=== PATIENT | female | born 1985 | race Caucasian/White ===

== ENCOUNTER 2020-06-06 17:48 | Emergency (ER) | payer MEDICARE, MEDICAID, SELFPAY ==
--- NOTE | ~2020-06-06 | CT_ITS ---
EXAMINATION: CT knee LT wo con DATE: 06/06/2020 18:54 INDICATION: Left knee pain. TECHNIQUE: Computed tomography (CT) of the left knee was performed without intravenous contrast. Auto mated exposure control and iterative reconstruction technique were employed. The dose-length product was 599.45 mGy-cm. COMPARISON: Left knee radiographs 11/14/2017 FINDINGS: Bone alignment is normal. No fracture. There is moderate tricompartmental osteoarthritis. T here is a small left knee joint effusion. IMPRESSION: 1. Moderate left knee osteoarthritis. 2. Small knee joint effusion. Reviewed, dictated and finalized at location A. [employer]
[2020-06-06 17:55] VITALS: BP 155/94; PULSE 95; RESP 22; TEMP 37.6; O2SAT 100
[2020-06-06] MEDS: ONDANSETRON HCL ODT 4 MG TABLET PO (18:32)
[2020-06-06] MEDS: HYDROmorphone HCL INJ (*CRX) 2 MG/ML VIAL 1.5 MG IM (18:32)
[2020-06-06 18:44] VITALS: BP 150/90; PULSE 90; RESP 18
[2020-06-06 19:35] VITALS: BP 150/88; PULSE 92; RESP 18
--- NOTE | 2020-06-06 20:01 | ED.LOWEXIN ---
HPI - Extremity Injury (Lower) General Source: patient and family Mode of arrival: ambulatory Limitations: no limitations History of Present Illness HPI Narrative: Patient says she twisted her leg and now has left knee pain since this twist which happened last pm. Pain has been moderately severe, ongoing and not relieved at home. complaint: knee injury Onset (ago): day(s) Place: home Severity: moderate Exacerbating factors: nothing Other symptoms: none Related Data Home Medications Medication Instructions Recorded Confirmed atorvastatin 40 mg PO DAILY 06/06/20 06/06/20 gabapentin 900 mg PO TID 06/06/20 06/06/20 hydrochlorothiazide 25 mg PO DAILY 06/06/20 06/06/20 potassium chloride 10 meq PO DAILY 06/06/20 06/06/20 Allergies Allergy/AdvReac Type Severity Reaction Status Date / Time Sulfa (Sulfonamide Allergy Severe HIVES Verified 11/07/18 01:54 Antibiotics) sumatriptan Allergy Intermediate WORSENS Verified 11/07/18 01:53 MIGRAINE AND NAUSEA doxycycline Allergy Mild Verified 11/07/18 01:53 latex Allergy Mild Verified 11/07/18 01:53 Penicillins Allergy Unknown Verified 11/07/18 01:53 sulfamethoxazole Allergy Unknown Verified 11/07/18 01:53 tramadol Allergy Unknown Unknown Verified 11/07/18 01:53 trimethoprim Allergy Unknown Verified 11/07/18 01:53 hydrocodone AdvReac Unknown ITCHING Verified 11/07/18 01:53 ketorolac AdvReac Unknown NAUSEA AND Verified 11/07/18 01:53 EMESIS Contrast Media Allergy Mild Nausea and Uncoded 11/07/18 01:53 Vomiting Review of Systems Constitutional: Constitutional: Reports no additional constitutional complaints Eyes: Eyes: Reports no additional eye complaints ENT: Reports system reviewed and no additional complaints, except as documented Cardiovascular: Cardiovascular: Reports no additional cardiovascular complaints Respiratory: Respiratory: Reports no additional respiratory complaints Gastrointestinal: Gastrointestinal: Reports no additional gastrointestinal complaints Genitourinary: Genitourinary: Reports no additional female genitourinary complaints Musculoskeletal: Musculoskeletal: Reports no additional musculoskeletal complaints Integumentary/Breasts: Skin/Breast: Reports system reviewed and no additional complaints, except as docu Neurologic: Reports system reviewed and no additional complaints, except as documented Psychiatric: Psychiatric: Reports no additional psychiatric complaints Endocrine: Endocrine: Reports no additional endocrine complaints Hematologic/Lymphatic: Hematologic/Lymphatic: Reports no additional hematologic/lymphatic complaints Allergic/Immunologic: Allergic/Immunologic: Reports no additional allergic/immunologic complaints [facility] Past Medical History Medical History (Updated 06/07/20 @ 01:54 by Miguel Angel Khan MD) Fibromyalgia HTN (hypertension) Hyperlipemia Irritable bowel Family History Family History Father Bipolar 1 disorder Hypertension Hyperlipemia Mother Hypertension Hyperlipemia Social History Social History Smoking packs per day: 0.5 Smoking cigarettes per day: 10.0 Smoking status: Current every day smoker Tobacco type: cigarettes Alcohol intake: never Exam Const: General: no acute distress Orientation/consciousness: patient oriented x3 HENMT: Head: normal to inspection Ears: external ears normal Face and sinus: normal facial exam Mouth: Yes Normal oral and palatal mucosa present and Yes moist mucous membranes Eyes: Conjunctivae: conjunctivae normal Neck: Neck: normal visual inspection and no lymphadenopathy Chest: Chest palpation & inspection: normal inspection of the chest Resp: Effort & Inspection: normal respiratory effort Auscultation: clear to auscultation bilaterally Cardio: Rate: regular rate Rhythm: regular rhythm GI: GI Palp: Yes Soft to palpation (
[2020-06-06 20:05] VITALS: BP 150/88; PULSE 90; RESP 18; TEMP 36.4; O2SAT 98
== END 2020-06-06 20:06 | disposition home or self-care (01) ==
PROVIDERS: Emergency Provider Emergency Medicine; PCP Family Medicine
DX: M25.562 Pain in left knee (principal)
CPT/HCPCS: 73700; 96372; 99283; 99284; A9270; J1170

== ENCOUNTER 2020-09-25 20:06 | Emergency (ER) | payer MEDICARE, MEDICAID, SELFPAY ==
--- NOTE | ~2020-09-25 | XR_ITS ---
XR knee LT min 4V DATE: 09/25/2020 20:51 INDICATION: Patient a pop a few hours ago. Generalized left knee pain TECHNIQUE: 4 views COMPARISON: None FINDINGS: Prominent tricompartment osteoarthritis No fracture or dislocation or joint effusion. No periosteal reaction or bone destruction, radiopaque intra-articular loose body or chondrocalcinosis. IMPRESSION: Tricompartment osteoarthritis Reviewed, dictated and finalized at location A.
[2020-09-25 20:11] VITALS: BP 153/94; PULSE 101; RESP 14; TEMP 37.2; O2SAT 97
--- NOTE | 2020-09-25 20:48 | ED.LOWEXIN ---
HPI - Extremity Injury (Lower) General Chief Complaint: Extremity Injury, Lower Stated Complaint: TRIED TO KILL MY KNEE Time Seen by Provider: 09/25/20 20:30 Source: patient and RN notes reviewed Mode of arrival: wheelchair Limitations: no limitations History of Present Illness HPI Narrative: This is a 35 year old morbidly obese female who presents for evaluation of left knee pain. She states she tried to stop her wheelchair from rolling down the hill by putting her foot down. She states she felt a pop, and she is having left lateral knee pain. She state she took tylenol for her pain. She states she is in wheelchair due to excessive weight. Related Data Home Medications Medication Instructions Recorded Confirmed atorvastatin 40 mg PO DAILY 06/06/20 06/06/20 gabapentin 900 mg PO TID 06/06/20 06/06/20 hydrochlorothiazide 25 mg PO DAILY 06/06/20 06/06/20 potassium chloride 10 meq PO DAILY 06/06/20 06/06/20 Allergies Allergy/AdvReac Type Severity Reaction Status Date / Time Sulfa (Sulfonamide Allergy Severe HIVES Verified 11/07/18 01:54 Antibiotics) sumatriptan Allergy Intermediate WORSENS Verified 11/07/18 01:53 MIGRAINE AND NAUSEA doxycycline Allergy Mild Verified 11/07/18 01:53 latex Allergy Mild Verified 11/07/18 01:53 Penicillins Allergy Unknown Verified 11/07/18 01:53 sulfamethoxazole Allergy Unknown Verified 11/07/18 01:53 tramadol Allergy Unknown Unknown Verified 11/07/18 01:53 trimethoprim Allergy Unknown Verified 11/07/18 01:53 hydrocodone AdvReac Unknown ITCHING Verified 11/07/18 01:53 ketorolac AdvReac Unknown NAUSEA AND Verified 11/07/18 01:53 EMESIS Contrast Media Allergy Mild Nausea and Uncoded 11/07/18 01:53 Vomiting Review of Systems Review of Systems: All systems reviewed & are unremarkable except as noted in HPI and below PMFSH Past Medical History Medical History Fibromyalgia HTN (hypertension) Hyperlipemia Irritable bowel Family History Family History Father Bipolar 1 disorder Hypertension Hyperlipemia Mother Hypertension Hyperlipemia Social History Social History Smoking packs per day: 0.5 Smoking cigarettes per day: 10.0 Smoking status: Current every day smoker Tobacco type: cigarettes Alcohol intake: never Gender identity (if verbalized by the patient): Female Exam Const: General: alert Nutritional Appearance: obese Orientation/consciousness: patient oriented x3 Resp: Effort & Inspection: normal respiratory effort Skin: General skin exam: normal color Rashes: no rashes Neuro: General: patient oriented x3, moves all extremities and CN's II-XI intact bilaterally Extrem: Other: left lateral knee no bruising, no noticeable swelling or deformity, TTP left lateral knee Psych: Mental Status: mental status grossly normal Affect: normal affect Course Reevaluation(s) Reevaluation #1: I have discussed with patient that xray did not show fracture Date: 09/25/20 Time: 21:39 Vital Signs Vital signs: Vital Signs Temperature 99.0 F 09/25/20 20:11 Pulse Rate 101 H 09/25/20 20:11 Respiratory Rate 14 09/25/20 20:11 Blood Pressure 153/94 H 09/25/20 20:11 Pulse Oximetry 97 09/25/20 20:11 Temperature 99.0 F 09/25/20 20:11 Pulse Rate 94 09/25/20 22:00 Respiratory Rate 20 09/25/20 22:00 Blood Pressure 150/94 H 09/25/20 22:00 Pulse Oximetry 96 09/25/20 22:00 MDM - Extremity Injury (Lower) Imaging Data Radiologist's impression: ITS Impressions Knee X-Ray 09/25/20 21:12 IMPRESSION: Tricompartment osteoarthritis Discharge Plan Discharge Clinical Impression: Left knee sprain Patient Disposition: Home, Self-Care Condition: Stable Instructions: Antibiotic Form, Knee Sprain (ED), Knee Pain (ED) Additiona
[2020-09-25] MEDS: oxyCODONE/ACETAMINOPHEN (*CRX) 5-325 MG TABLET 1 TABLET PO (21:01)
[2020-09-25 22:00] VITALS: BP 150/94; PULSE 94; RESP 20; O2SAT 96
== END 2020-09-25 22:00 | disposition home or self-care (01) ==
PROVIDERS: Emergency Provider General Practice; PCP Family Medicine
DX: S83.92XA Sprain of unspecified site of left knee, initial encounter (principal); E66.01 Morbid (severe) obesity due to excess calories; Z68.45 Body mass index [BMI] 70 or greater, adult; Z99.3 Dependence on wheelchair; M79.7 Fibromyalgia; I10 Essential (primary) hypertension; E78.5 Hyperlipidemia, unspecified; K58.9 Irritable bowel syndrome, unspecified; F17.210 Nicotine dependence, cigarettes, uncomplicated; M17.12 Unilateral primary osteoarthritis, left knee; X50.9XXA Other and unspecified overexertion or strenuous movements or postures, initial encounter
CPT/HCPCS: 73564; 99283; A9270

== ENCOUNTER 2021-01-05 19:14 | Emergency (ER) | payer MEDICARE, OTHER, SELFPAY ==
--- NOTE | ~2021-01-05 | XR_ITS ---
EXAMINATION: XR wrist RT min 3V INDICATION: Right wrist pain TECHNIQUE: Four views of the right wrist are obtained. COMPARISON: 11/08/2011 FINDINGS: Three radiopaque foreign bodies are identified in the soft tissues of the wrist projecting medial to the carpal bones. Each measures approximately 4 mm. Bone alignment is normal. There is no f racture. The joint spaces are normal. IMPRESSION: 1. Three radiopaque foreign bodies in the soft tissues of the medial wrist. Reviewed, dictated and finalized at location A.
--- NOTE | ~2021-01-05 | XR_ITS ---
EXAMINATION: XR elbow RT min 3V INDICATION: Right elbow pain TECHNIQUE: Four views of the right elbow were obtained. COMPARISON: 11/08/2011 FINDINGS: There is no fracture, dislocation, or subluxation. Bone alignment is normal. The joint spac es are normal. There are at least three radiopaque foreign bodies projecting in the posterior subcuta neous tissues. One measures 4 mm and projects posterior to the distal humerus. The second measures 4 mm and projects near the ulna and the third is a 1 mm linear foreign body projecting between the two larger foreign bodies. IMPRESSION: 1. No acute osseous abnormality. 2. Radiopaque foreign bodies projecting in the posterior subcutaneous tissues of the right arm as candido cribed above. Reviewed, dictated and finalized at location A. IMPRESSION: 1. No acute osseous abnormality. 2. Radiopaque foreign bodies projecting in the posterior subcutaneous tissues o f the right arm as described above.
[2021-01-05 19:15] VITALS: BP 161/93; PULSE 72; RESP 20; TEMP 36.2; O2SAT 97
[2021-01-05] MEDS: IBUPROFEN 400 MG TABLET 800 MG PO (20:17)
--- NOTE | 2021-01-05 20:59 | ED.EXTPRO ---
HPI - Extremity Problem General Chief complaint: Extremity Problem,Nontraumatic Stated complaint: wrist pain Time Seen by Provider: 01/05/21 19:17 Source: patient and RN notes reviewed Mode of arrival: ambulatory Limitations: no limitations History of Present Illness MD Complaint: extremity pain and other (FB of right wrist and right elbow.) Onset (ago): year(s) (3) Pain Consistency: constant Location: right and upper extremity Severity scale (1-10): 3 Quality: aching Radiation: none Relieving factors: medication Exacerbating factors: nothing Associated symptoms: denies other symptoms Related Data Home Medications Medication Instructions Recorded Confirmed atorvastatin 40 mg PO DAILY 06/06/20 01/05/21 gabapentin 1,200 mg PO TID 06/06/20 01/05/21 hydrochlorothiazide 25 mg PO DAILY 06/06/20 01/05/21 potassium chloride 40 meq PO DAILY 06/06/20 01/05/21 albuterol sulfate 2 puff INHALATION Q4-6H PRN 01/05/21 01/05/21 dicyclomine 20 mg PO TID 01/05/21 01/05/21 hydroxyzine pamoate 25 mg PO TID PRN 01/05/21 01/05/21 methimazole 2.5 mg PO DAILY 01/05/21 01/05/21 oxycodone-acetaminophen 1 tablet PO Q8-12H PRN 01/05/21 01/05/21 Allergies Allergy/AdvReac Type Severity Reaction Status Date / Time Sulfa (Sulfonamide Allergy Severe HIVES Verified 11/07/18 01:54 Antibiotics) sumatriptan Allergy Intermediate WORSENS Verified 11/07/18 01:53 MIGRAINE AND NAUSEA doxycycline Allergy Mild Itching Verified 01/05/21 19:52 latex Allergy Mild Itching Verified 01/05/21 19:52 Penicillins Allergy Unknown Itching Verified 01/05/21 19:52 sulfamethoxazole Allergy Unknown Itching Verified 01/05/21 19:52 tramadol Allergy Unknown Unknown Verified 11/07/18 01:53 trimethoprim Allergy Unknown Itching Verified 01/05/21 19:52 bee venom protein (honey bee) Allergy Anaphylaxis Verified 01/05/21 19:52 tomato Allergy Itching Verified 01/05/21 19:52 hydrocodone AdvReac Unknown ITCHING Verified 11/07/18 01:53 ketorolac AdvReac Unknown NAUSEA AND Verified 11/07/18 01:53 EMESIS Contrast Media Allergy Mild Nausea and Uncoded 11/07/18 01:53 Vomiting Review of Systems Review of Systems: All systems reviewed & are unremarkable except as noted in HPI and below Musculoskeletal: Musculoskeletal: Reports arthralgias PMFSH Past Medical History Medical History Fibromyalgia HTN (hypertension) Hyperlipemia Irritable bowel Family History Family History Father Bipolar 1 disorder Hypertension Hyperlipemia Mother Hypertension Hyperlipemia Social History Social History Smoking packs per day: 0.5 Smoking cigarettes per day: 10.0 Smoking status: Current every day smoker Tobacco type: cigarettes Alcohol intake: never Gender identity (if verbalized by the patient): Female Exam Const: General: no acute distress and alert Nutritional Appearance: obese Orientation/consciousness: patient oriented x3 HENMT: Head: normal to inspection Ears: external ears normal and TM's normal bilaterally General nose exam: Normal external nose present and Normal nares present Mouth: Yes moist mucous membranes Eyes: Conjunctivae: conjunctivae normal Pupils: Equal, round and reactive pupils present EOM: EOMs intact bilaterally Neck: Neck: normal visual inspection and no lymphadenopathy Chest: Chest palpation & inspection: normal inspection of the chest Resp: Effort & Inspection: normal respiratory effort Auscultation: clear to auscultation bilaterally Cardio: Rate: regular rate Rhythm: regular rhythm GI: GI Palp: Yes Soft to palpation and No Tenderness to palpation present (GI) Auscultation: normal bowel sounds : General: Yes bladder normal to palpation and Yes no CVA tenderness Back/Spine/Pelvis: Back: no CVA tenderness Skin: General skin exam: normal color
[2021-01-05 21:14] VITALS: BP 152/97; PULSE 79; RESP 20; TEMP 36.2; O2SAT 98
== END 2021-01-05 21:18 | disposition home or self-care (01) ==
PROVIDERS: Emergency Provider Emergency Medicine; PCP Family Medicine
DX: S60.85 Superficial foreign body of wrist (principal); S50.35 Superficial foreign body of elbow
CPT/HCPCS: 73080; 73110; 99283; 99284; A9270

== ENCOUNTER 2023-01-05 19:49 | Emergency (ER) | payer MEDICARE, MEDICAID, SELFPAY ==
--- NOTE | ~2023-01-05 | CT_ITS ---
EXAMINATION: CT lumbar spine wo con DATE: 01/05/2023 21:05 INDICATION: Low back pain TECHNIQUE: Computed tomography (CT) of the lumbar spine was performed without intravenous contrast. T he dose-length product (DLP) was 1406.78 mGy-cm. Iterative reconstruction was used. COMPARISON: 10/31/2017 FINDINGS: There are 2 mm of chronic retrolisthesis of L5 on S1. The vertebral body heights are mainta ined. There is mild loss of intervertebral disc space height at L5-S1. There is no fracture. There is multilevel mild facet joint osteoarthritis. IMPRESSION: 1. Mild lumbar spondylosis without acute findings or significant interval change. Reviewed, dictated and finalized at location F. IMPRESSION: 1. Mild lumbar spondylosis without acute findings or significant interval silver sonu
[2023-01-05 19:54] VITALS: BP 164/116; PULSE 111; RESP 16; TEMP 36.8; O2SAT 94
--- NOTE | 2023-01-05 20:00 | ED.FALL ---
HPI - Fall General Chief Complaint: Fall Stated Complaint: Back Injury Time Seen by Provider: 01/05/23 19:59 Source: patient Mode of arrival: ambulatory Limitations: no limitations History of Present Illness HPI Narrative: this is a 7-year-old female with morbid obesity, dyslipidemia, fibromyalgia, hyperthyroidism fell backwards earlier today while she was walking at home prior to coming to the ER. The patient presents with -- low back pain without any radiation. No paresthesias. -- Numbness of both her legs below her knees. The patient is able to voluntarily move her toes. complaint: fall Onset (ago): hour(s) ( couple of hours ago) Fall from: standing Fall witnessed: no Place fall occurred: home Loss of consciousness: none Prolonged down time: no Symptoms prior to fall: none Context: tripped/slipped Location of injury: back Severity: moderate Quality: aching Related Data Home Medications Medication Instructions Recorded Confirmed atorvastatin 40 mg tablet 40 mg PO DAILY 06/06/20 01/05/23 gabapentin 600 mg tablet 1,200 mg PO TID 06/06/20 01/05/23 hydrochlorothiazide 25 mg tablet 25 mg PO DAILY 06/06/20 01/05/23 potassium chloride 10 mEq 40 meq PO DAILY 06/06/20 01/05/23 tablet,extended release albuterol sulfate 90 mcg/actuation 2 puff inhalation Q4-6H PRN 01/05/21 01/05/23 aerosol inhaler Shortness Of Breath dicyclomine 20 mg tablet 20 mg PO TID 01/05/21 01/05/23 hydroxyzine pamoate 25 mg capsule 25 mg PO TID PRN Anxiety 01/05/21 01/05/23 methimazole 5 mg tablet 2.5 mg PO DAILY 01/05/21 01/05/23 oxycodone-acetaminophen 10 mg-325 1 tablet PO Q8-12H PRN Pain, 01/05/21 01/05/23 mg tablet Moderate Allergies Allergy/AdvReac Type Severity Reaction Status Date / Time Sulfa (Sulfonamide Allergy Severe HIVES Verified 01/05/23 19:51 Antibiotics) sumatriptan Allergy Intermediate WORSENS Verified 01/05/23 19:51 MIGRAINE AND NAUSEA doxycycline Allergy Mild Itching Verified 01/05/23 19:51 latex Allergy Mild Itching Verified 01/05/23 19:51 Penicillins Allergy Unknown Itching Verified 01/05/23 19:51 sulfamethoxazole Allergy Unknown Itching Verified 01/05/23 19:51 tramadol Allergy Unknown Unknown Verified 01/05/23 19:51 trimethoprim Allergy Unknown Itching Verified 01/05/23 19:51 bee venom protein (honey bee) Allergy Anaphylaxis Verified 01/05/23 19:51 tomato Allergy Itching Verified 01/05/23 19:51 hydrocodone AdvReac Unknown ITCHING Verified 01/05/23 19:51 ketorolac AdvReac Unknown NAUSEA AND Verified 01/05/23 19:51 EMESIS Contrast Media Allergy Mild Nausea and Uncoded 01/05/23 19:51 Vomiting Review of Systems Review of Systems: All systems reviewed & are unremarkable except as noted in HPI and below Constitutional: Constitutional: Reports as per HPI and Reports no additional constitutional complaints Eyes: Eyes: Reports as per HPI and Reports no additional eye complaints ENT: Reports system reviewed and no additional complaints, except as documented and Reports as per HPI Cardiovascular: Cardiovascular: Reports as per HPI and Reports no additional cardiovascular complaints Respiratory: Respiratory: Reports as per HPI and Reports no additional respiratory complaints Gastrointestinal: Gastrointestinal: Reports as per HPI and Reports no additional gastrointestinal complaints Genitourinary: Genitourinary: Reports no additional female genitourinary complaints and Reports as per HPI Musculoskeletal: Musculoskeletal: Reports no additional musculoskeletal complaints, Reports as per HPI and Reports back pain Comments: low back pain Integumentary/Breasts: Skin/Breast: Reports system reviewed and no additional complaints, except as docu and Reports as per HPI Neurologic: Reports system reviewed and no additional complaints, except as documented and Reports as per HPI Psychiatric: Comments: no sensation below her knees. Patient is able to move legs and wiggle her toes. Endoc
[2023-01-05 20:41] LABS: Pregnancy On Board Control Positive; Urine Pregnancy Test Negative
[2023-01-05] MEDS: ONDANSETRON HCL ODT 4 MG TABLET PO (22:01)
[2023-01-05] MEDS: HYDROmorphone HCL INJ (*CRX) 2 MG/ML VIAL 0.5 MG IM (22:01)
== END 2023-01-05 22:21 | disposition home or self-care (01) ==
PROVIDERS: Emergency Provider Internal Medicine Critical Care Medicine; PCP Family Medicine
DX: M54.50 Low back pain, unspecified (principal); E78.5 Hyperlipidemia, unspecified; I10 Essential (primary) hypertension; F17.210 Nicotine dependence, cigarettes, uncomplicated; Z79.899 Other long term (current) drug therapy; Z79.891 Long term (current) use of opiate analgesic; W01.0XXA Fall on same level from slipping, tripping and stumbling without subsequent striking against object, initial encounter; Y92.009 Unspecified place in unspecified non-institutional (private) residence as the place of occurrence of the external cause
CPT/HCPCS: 72131; 81025; 96372; 99284; A9270; J1170

== ENCOUNTER 2023-03-08 17:49 | Emergency (ER) | payer MEDICARE, MEDICAID, SELFPAY ==
--- NOTE | ~2023-03-08 | XR_ITS ---
EXAMINATION: XR chest 2V Exam Date/Time: 03/08/2023 18:25 RESIDENT HALL DIRECTOR HISTORY: chest pain Comparison: 11/27/2018. RESULT: Lines, tubes, and devices: None. Lungs and pleura: Mild diffuse reticular opacities with cuffing. Subsegmental hazy opacity in the le ft lower lung. Cardiomediastinal silhouette: Stable. Other: No acute osseous or upper abdominal finding. IMPRESSION: Mild interstitial edema. Subsegmental left lower lung airspace disease may represent infection or ate lectasis. Reviewed, dictated and finalized at location K. DENT HALL DIRECTOR IMPRESSION: Mild interstitial edema. Subsegmental left lower lung airspace disease may repr esent infection or atelectasis.
--- NOTE | 2023-03-08 18:00 | ECG_ITS ---
Measurements Intervals [place] Rate: 103 P: AL: 0 QRS: 60 QRSD: 97 T: 53 QT: 362 QTc: 475 Interpretive Statements SINUS TACHYCARDIA BORDERLINE T WAVE ABNORMALITY- ANTERIOR LEADS BORDERLINE ECG COMPARED TO ECG 08/02/2018 13:25:43 HEART RATE HAS DECREASED Electronically Signed On 03-09-2023 6:13:48 DIRECTOR AND PROFESSOR by Saad Wang D.O.
[2023-03-08 18:01] VITALS: BP 145/94; PULSE 107; RESP 20; TEMP 36.2; O2SAT 99
[2023-03-08 18:26] LABS: Basophils Percent Auto 0.4 % (0.2-1.2); Eosinophils Absolute Auto 0.4 K/mm3 (0-0.3); Eosinophils Percent Auto 3.1 % (0-4.4); Hematocrit 43.5 % (37.0-47.0); Hemoglobin 13.9 g/dL (12.0-15.0); Immature Granulocyte Absolute 0.06 K/mm3 (0.00-0.031); Immature Granulocyte Percent A 0.5 % (0-0.5); Lymphocytes Absolute Auto 2.38 K/mm3 (0.9-3.2); Mean Corpuscular Hemoglobin 27.9 pg (26-34); Mean Corpuscular Volume 87.3 fl (80-100); Mean Platelet Volume 11.1 fl (7.4-10.4); Monocytes Absolute Auto 0.4 K/mm3 (0.1-0.6); Monocytes Percent Auto 3.9 % (2.6-8.5); Neutrophils Absolute Auto 8.1 K/mm3 (1.3-6.7); Neutrophils Percent Auto 71.1 % (45.5-73.1); Platelet Count Result 344 k/mm3 (150-375); Red Blood Count 4.98 M/mm3 (4.2-5.4); Red Cell Distribution Width 14.1 % (11.5-14.5); White Blood Count 11.4 K/mm3 (4.5-10.0)
[2023-03-08 18:39] LABS: Alanine Aminotransferase 14 U/L (6-35); Albumin Level 4.2 g/dL (3.5-5.1); Alkaline Phosphatase 84 U/L (38-126); Anion Gap 9 mmol/L (8-16); Aspartate Amino Transferase 17 U/L (14-36); Bilirubin,Total 0.5 mg/dL (0.2-1.3); Blood Urea Nitrogen 7 mg/dL (7-17); Calcium 9.5 mg/dL (8.4-10.2); Carbon Dioxide 22 mmol/L (22-30); Chloride 101 mmol/L (98-107); Estimated CRCL calculation 195 ml/min; Estimated Glomerular Filt Rate > 60; Glucose 450 mg/dL (65-110); Lipase 49 U/L (23-300); Sodium 132 mmol/L (137-145)
[2023-03-08 18:42] LABS: Partial Thromboplastin Time 23.7 SECONDS (22.3-36.8); Prothrombin Time 13.2 Seconds (11.1-14.7)
[2023-03-08 18:49] LABS: Troponin I < 0.012 ng/mL (0.000-0.034)
[2023-03-08 20:00] VITALS: PULSE 101
[2023-03-08 20:01] VITALS: O2SAT 97
[2023-03-08 20:02] VITALS: BP 145/109; PULSE 102; RESP 22; TEMP 36.6; O2SAT 96
[2023-03-08] MEDS: NITROGLYCERIN SL 0.4 MG TABLET SUBLINGUAL (20:07)
--- NOTE | 2023-03-08 20:07 | PC.NURSE ---
Reports pain is 8/10 at this time. First nitro given.
--- NOTE | 2023-03-08 20:14 | ED.GENADULT ---
HPI - General Adult General Chief complaint: Chest Pain Stated complaint: chest pain/diff breathing/nausea Time Seen by Provider: 03/08/23 19:50 History of Present Illness HPI narrative: Patient 37-year-old female who presents emerged from with chief complaint of chest pain. Patient reports she has history of cardiac disease but does not have any stents placed she reports she has had MIs followed by cardiology in [place] patient states she was on a trip driving to the area and left her nitroglycerin at home she reports started having midsternal chest pain that she describes as pressure and also sharp. Related Data Home Medications Medication Instructions Recorded Confirmed atorvastatin 40 mg tablet 40 mg PO DAILY 06/06/20 01/05/23 gabapentin 600 mg tablet 1,200 mg PO TID 06/06/20 01/05/23 hydrochlorothiazide 25 mg tablet 25 mg PO DAILY 06/06/20 01/05/23 potassium chloride 10 mEq 40 meq PO DAILY 06/06/20 01/05/23 tablet,extended release albuterol sulfate 90 mcg/actuation 2 puff inhalation Q4-6H PRN 01/05/21 01/05/23 aerosol inhaler Shortness Of Breath dicyclomine 20 mg tablet 20 mg PO TID 01/05/21 01/05/23 hydroxyzine pamoate 25 mg capsule 25 mg PO TID PRN Anxiety 01/05/21 01/05/23 methimazole 5 mg tablet 2.5 mg PO DAILY 01/05/21 01/05/23 oxycodone-acetaminophen 10 mg-325 1 tablet PO Q8-12H PRN Pain, 01/05/21 01/05/23 mg tablet Moderate Allergies Allergy/AdvReac Type Severity Reaction Status Date / Time Sulfa (Sulfonamide Allergy Severe HIVES Verified 01/05/23 19:51 Antibiotics) sumatriptan Allergy Intermediate WORSENS Verified 01/05/23 19:51 MIGRAINE AND NAUSEA doxycycline Allergy Mild Itching Verified 01/05/23 19:51 latex Allergy Mild Itching Verified 01/05/23 19:51 Penicillins Allergy Unknown Itching Verified 01/05/23 19:51 sulfamethoxazole Allergy Unknown Itching Verified 01/05/23 19:51 tramadol Allergy Unknown Unknown Verified 01/05/23 19:51 trimethoprim Allergy Unknown Itching Verified 01/05/23 19:51 bee venom protein (honey bee) Allergy Anaphylaxis Verified 01/05/23 19:51 tomato Allergy Itching Verified 01/05/23 19:51 hydrocodone AdvReac Unknown ITCHING Verified 01/05/23 19:51 ketorolac AdvReac Unknown NAUSEA AND Verified 01/05/23 19:51 EMESIS Contrast Media Allergy Mild Nausea and Uncoded 01/05/23 19:51 Vomiting Review of Systems Review of Systems: A 10 system review of systems was completed on the patient and is negative except for what is stated in the HPI. Nursing and ancillary documentation was reviewed. PMFSH Past Medical History Medical History Fibromyalgia HTN (hypertension) Hyperlipemia Irritable bowel Family History Family History Father Bipolar 1 disorder Hypertension Hyperlipemia Mother Hypertension Hyperlipemia Social History Social History Smoking packs per day: 0.5 Smoking cigarettes per day: 10.0 Smoking status: Current every day smoker Tobacco type: cigarettes Alcohol intake: never Gender identity (if verbalized by the patient): Female Exam Narrative: GENERAL: Well-appearing, obese, and in no acute distress. HEAD: Normocephalic, atraumatic. EYES: PERRLA and EOMI. ENT: Nares clear, no rhinorrhea or epistaxis. Mucous membranes moist. NECK: Supple. CHEST: Clear to auscultation. No respiratory distress. HEART: Regular rate and rhythm. No murmur heard. Normal peripheral pulses. ABDOMEN: Soft, nontender, nondistended, normal active bowel sounds. EXTREMITIES: Normal range of motion. No edema. SKIN: Warm, dry, no rash. NEURO: No focal deficits. Alert and oriented x3. PSYCH: Normal mood and affect. Course Vital Signs Vital signs: Vital Signs Temperature 36.2 C L 03/08/23 18:01 Pulse Rate 107 H 03/08/23 18:01 Respiratory R
--- NOTE | 2023-03-08 20:24 | PC.NURSE ---
Pain still 11/18. 2nd nitro given.
--- NOTE | 2023-03-08 20:41 | PC.NURSE ---
Pain remains 11/18. Third nitro given. 116/99
[2023-03-08] MEDS: MORPHINE SULFATE (*CRX) 4 MG/ML INJ IV PUSH (21:14)
[2023-03-08 21:19] LABS: Troponin I < 0.012 ng/mL (0.000-0.034)
[2023-03-08 21:27] VITALS: BP 116/84; PULSE 108; RESP 15; O2SAT 95
[2023-03-08] MEDS: ONDANSETRON INJ 4 MG/2 ML VIAL IV PUSH (21:32)
== END 2023-03-08 22:16 | disposition home or self-care (01) ==
PROVIDERS: Emergency Medicine; Emergency Provider Emergency Medicine; PCP Family Medicine
DX: R07.89 Other chest pain (principal); I10 Essential (primary) hypertension; E78.5 Hyperlipidemia, unspecified; M79.7 Fibromyalgia
CPT/HCPCS: 36415; 71046; 80053; 83690; 84484; 85025; 85610; 85730; 93005; 96374; 96375; 99284; A9270; J2270; J2405

== ENCOUNTER 2023-11-09 09:45 | Outpatient (RCR) | payer MEDICARE, MEDICAID, SELFPAY ==
--- NOTE | 2023-10-12 09:59 | OPREHPOC ---
Outpatient Therapy Plan of Care This is a Multidisciplinary Plan of Care that may contain components documented by all disciplines (PT, OT, and ST.) PT Problem 1 PT Problem #1 Knowledge Deficit PT Goal 1 Goal 1. Patient will perform independent HEP Target Visit 3 PT Problem 2 PT Problem #2 Pain PT Goal 1 Goal 1. Pain no higher than 4/10 with grooming activities 2. Pain no higher than 2/10 with driving Target Visit 8 PT Problem 3 PT Problem #3 Impaired Range of Motion PT Goal 1 Goal 1. Active shoulder flexion 120 degrees for reaching tasks 2. Active shoulder abduction 100 degrees 3. Active shoulder combined external rotation to C5 for doing her hair 4. Active shoulder combined internal rotation to T12 Target Visit 8 PT Problem 4 PT Problem #4 Impaired Strength PT Goal 1 Goal 1. Right UE 4/5 in all planes to allow for normal daily tasks Target Visit 8
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
--- NOTE | 2023-11-09 10:23 | OPREHPOC ---
Outpatient Therapy Plan of Care This is a Multidisciplinary Plan of Care that may contain components documented by all disciplines (PT, OT, and ST.) PT Problem 1 PT Problem #1 Knowledge Deficit PT Goal 1 Goal 1. Patient will perform independent HEP Target Visit 3 Progress Met PT Problem 2 PT Problem #2 Pain PT Goal 1 Goal 1. Pain no higher than 4/10 with grooming activities 2. Pain no higher than 2/10 with driving Target Visit 16 Progress Partially Met Comment not as high as often PT Problem 3 PT Problem #3 Impaired Range of Motion PT Goal 1 Goal 1. Active shoulder flexion 120 degrees for reaching tasks 2. Active shoulder abduction 100 degrees 3. Active shoulder combined external rotation to C5 for doing her hair 4. Active shoulder combined internal rotation to T12 Target Visit 16 Progress Partially Met Comment 1. 105 2. met 3. occiput 4. buttock PT Problem 4 PT Problem #4 Impaired Strength PT Goal 1 Goal 1. Right UE 4/5 in all planes to allow for normal daily tasks Target Visit 16 Progress Not Met
--- NOTE | 2023-11-09 10:24 | PTOPPROG ---
Assessment and note entered by Lyn Beasley DPT Evaluation Information Assessment Status Progress Diagnosis m75.01 Subjective Information Pt reports improvements with therapy so far. Continues to have difficulty lifting her arm but it is much higher than it was. Highest pain 8/10 and lowest 5/10 but is not getting as high as often. Still having to modify with doing her hair and dressing but states it is improving. Sees on 11/15. Assessment PT Clinical Summary The patient has made good progress in therapy and reports she is able to use her arm more for driving, dressing, and grooming tasks. Her pain is not as high as often. She demonstrates improved active and passive shoulder motion in all planes but continues to lack full motion. Due to her progress she will benefit from continued therapy to address range and strength and to decrease pain with ADL's. Plan of Care Interventions Electrical Stimulation,Gait Training,Hot Pack/Cold Pack,Manual Therapy,Neuro Re-education,Patient/ Caregiver Education,Therapeutic Activities, Therapeutic Exercise PT Services Indicated Yes Treatment Frequency and 2 times a week for 8 visits Duration These treatments will address the objective and functional deficits as defined above. The patient will be advanced safely and appropriately in order for the patient to progress towards his/her prior level of function. Additional exercises will be introduced and as well as a comprehensive home exercise program upon discharge, if needed, ?to ensure carryover of functional gains achieved in the clinic. This treatment plan has been reviewed and agreement upon by the patient.
--- NOTE | 2023-12-02 08:29 | PCPTNOTE ---
Patient called to cancel this date due to her having surgery.
--- NOTE | 2023-12-05 08:11 | PCPTNOTE ---
Patient called & cancelled scheduled appointment this date due to needing to take care of her who is recovering from surgery.
--- NOTE | 2023-12-07 09:42 | PCPTNOTE ---
Patient called to cancel due to recovering from surgery.
--- NOTE | 2023-12-14 08:07 | PCPTNOTE ---
Patient no showed to appointment this date. Called and left voicemail.
--- NOTE | 2023-12-21 08:26 | PCPTNOTE ---
Patient no showed and will be discharged per compliance policy. Unable to leave voicemail due to mailbox being full.
--- NOTE | 2023-12-21 08:58 | PTOPDC ---
Assessment and note entered by Lyn Beasley DPT Evaluation Information Assessment Status Discharge - Pt Not Present Diagnosis m75.01 Subjective Information - Assessment PT Clinical Summary The patient has no showed more than 3 visits and has not attended therapy since 11/09/23. She has not responded to multiple phone calls and will be discharged per attendance policy. Plan of Care PT Services Indicated No
== END 2023-12-21 11:01 | disposition home or self-care (01) ==
LOC: ANHGOSHPT 09:45
PROVIDERS: PCP Family Medicine
DX: M75.01 Adhesive capsulitis of right shoulder (principal)
CPT/HCPCS: 97014; 97110; 97140; 97161; 97530; G0283